=== PATIENT | female | born 1980 | race Caucasian/White ===

== ENCOUNTER 2019-12-14 06:00 | Day surgery (SDC) | payer OTHER ==
[~2019-12-14 06:00] MED LIST: CLONAZEPAM0.5 MG PO; NASAL MIST126 ML
== END 2019-12-14 16:15 | disposition home or self-care (01) ==
LOC: CIR.AMB 06:00
PROVIDERS: Plastic Surgery
PROC: 0HQV0ZZ Repair Bilateral Breast, Open Approach (ICD-10-PCS; principal; 2019-12-14 07:00)
DX: N65.1 Disproportion of reconstructed breast (principal)